=== PATIENT | male | born 1995 | race African-American/Black ===

== ENCOUNTER 2017-05-20 19:38 | Emergency (ER) | payer SELFPAY ==
[~2017-05-20] VITALS: Ht 162.6 cm; Wt 82.0 kg
[2017-05-20] MEDS ORDERED: METHYLPREDNISOLONE SOD SUCC 125 MG/2 ML VIAL IM STA (23:23)
[2017-05-20] MEDS ORDERED: IPRATROPIUM BROMIDE (0.02%) 0.5MG/2.5ML NEB HHN STA (23:23)
[2017-05-20] MEDS ORDERED: ALBUTEROL (0.083%) 2.5MG/3ML NEB HHN STA (23:23)
[2017-05-21 01:15] VITALS: BP 167/97
== END 2017-05-21 01:51 | disposition home or self-care (01) ==
LOC: ER 20:46
DX: J45.909 Unspecified asthma, uncomplicated (principal); F41.9 Anxiety disorder, unspecified; F17.200 Nicotine dependence, unspecified, uncomplicated; Z91.19 Patient's noncompliance with other medical treatment and regimen
CPT/HCPCS: 71010; 94640; 96372; 99284; J2930; J7611; Z7610